=== PATIENT | male | born 1980 | race Caucasian/White ===

== ENCOUNTER → 2016-03-17 | Outpatient (CLI) | payer OTHER ==
[~2016-03-17] MED LIST: AMOXICILLIN500 M1 PO; AUGMENTIN875 MG PO; BACTRIM,SEPT1 TABLET PO; FLEXERIL10 MG PO; KEFLEX500 MG PO; MOTRIN600 MG PO; NAPROSYN500 MG PO; NOHOMEMEDS; OXECTA5 MG PO; PEN-VEE K,VEET500 MG PO; PERCOCET 10/1 TABLET PO; PERCOCET 5/31 TABLET PO; REGLAN10 MG PO; ULTRAM50 MG PO
== END | disposition home or self-care (01) ==
LOC: RES 09:59
DX: J45.909 Unspecified asthma, uncomplicated (principal)
CPT/HCPCS: 94060; 94726; 94729

== ENCOUNTER 2017-08-20 11:42 | Emergency (ER) | payer OTHER ==
[~2017-08-20] VITALS: Ht 185.4 cm; Wt 151.4 kg
[2017-08-20 13:48] LABS: HEMATOCRIT 44.3 % (38.0-50.0); HEMOGLOBIN 15.6 G/DL (12.5-16.6); MCH 31.7 PG (29.0-34.0); MCHC 35.2 G/DL (30.0-36.0); PLATELET COUNT 242 K/uL (156-360); RBC DIS.WIDTH-CV 12.5 % (11.8-14.6); RBC DIS.WIDTH-SD 41.2 % (39-53); RED BLOOD COUNT 4.92 M/uL (4.00-5.50); WHITE BLOOD COUNT 8.8 K/uL (4.1-10.2)
[2017-08-20 14:04] LABS: CHLORIDE 105 mEq/L (99-109); POTASSIUM 4.3 mEq/L (3.7-5.4); SODIUM 140 mEq/L (136-147)
[2017-08-20 14:05] LABS: GLUCOSE 107 mg/dL (70-99)
[2017-08-20 14:09] LABS: CREATININE 0.9 mg/dL (0.6-1.3); GFR ESTIMATE (CALCULATED) > 59 mL/min/ (58.99-99999)
[2017-08-20 14:10] LABS: UREA NITROGEN (BUN) 10 mg/dL (9-23)
[2017-08-20 14:12] LABS: TROP-I INTERPRETATION NEGATIVE; TROPONIN-I < 0.01 ng/mL (0.0-0.30)
[2017-08-20 14:18] LABS: CK-MB 1.9 ng/mL (0.0-4.9)
[2017-08-20 14:49] LABS: CKMB RELATIVE INDEX 1.1 (0.0-3.9); CREATINE KINASE 178 IU/L (1-294); TOTAL CK 178 IU/L (1-294)
[2017-08-20 15:46] VITALS: BP 125/71
== END 2017-08-20 15:48 | disposition home or self-care (01) ==
LOC: EME 11:42
PROVIDERS: Nurse Practitioner Family
DX: S61.200A Unspecified open wound of right index finger without damage to nail, initial encounter (principal); S61.202A Unspecified open wound of right middle finger without damage to nail, initial encounter; W86.8XXA Exposure to other electric current, initial encounter; F17.200 Nicotine dependence, unspecified, uncomplicated
CPT/HCPCS: 73130; 80048; 82550; 82553; 84484; 85027; 93005; 99281; 99284; J1885